=== PATIENT | male | born 1990 | race Caucasian/White ===

== ENCOUNTER 2021-06-15 22:02 | Emergency (ER) | payer SELFPAY ==
[2021-06-15 22:04] VITALS: BP 110/81; PULSE 77; RESP 16; TEMP 36.6; O2SAT 97; BMI 29.1
--- NOTE | 2021-06-15 22:27 | XR_ITS ---
PROCEDURE INFORMATION: Exam: XR Left Knee Exam date and time: 06/15/2021 10:27 PM Age: 30 years old Clinical indication: Patient HX: Injury 1 week ago, C/O lateral left knee pain TECHNIQUE: Imaging protocol: XR Left knee. Views: 3 views. COMPARISON: No relevant prior studies available. FINDINGS: Bones/joints: Normal. Soft tissues: Moderate size suprapatellar joint effusion. IMPRESSION: Moderate size suprapatellar joint effusion. No underlying acute fracture or dislocation.
--- NOTE | 2021-06-16 00:05 | [facility].EDGENADL ---
ED Disposition Clinical Impression: Knee effusion, left Knee internal derangement Qualifiers: Laterality: left Qualified Code(s): M23.92 - Unspecified internal derangement of left knee Disposition: Home, Self-Care Condition on Discharge: Good Instructions: DI for Knee Effusion Additional Instructions: see ortho and pcp for follow up Prescriptions: predniSONE [Prednisone 20mg Tab] 20 mg PO BID #10 tab Prescription Printed Referrals: Provider,MD Nigel [Primary Care Provider] - Nitesh Ferguson MD [Staff Physician] - Alex Montez JR, MD [Physician] - - Critical Care Critical Care Time: No Attestation: On 06/15/21, the high probability of a clinically significant, sudden or life threatening deterioration of the following system(s) required my full and direct attention, intervention and personal management. The time I documented below is in addition to time spent performing reported procedures but includes the following listed in this critical care notation. Medical Decision Making - Medical Records Medical records reviewed: Yes: I reviewed the patient's medical records. - Bladimir Inquiry Pt receiving controlled substance: No Vital Signs: 06/15/21 22:04 Temperature 97.9 F Temperature Source Oral Pulse Rate [Left] 77 Respiratory Rate 16 Blood Pressure [Right Arm] 110/81 Blood Pressure Mean [Right Arm] 90 02 Sat by Pulse Oximetry 97 Oxygen Delivery Method Room Air Orders (Tests/Meds): ED MEDICATIONS Discontinued Medications Generic Name Dose Route Start Last Admin Trade Name Freq PRN Reason Stop Dose Admin Ibuprofen 800 mg 06/15/21 23:54 06/15/21 23:56 Ibuprofen 400 Mg Tablet PO 06/15/21 23:55 800 mg ONCE ONE Administration Prednisone 40 mg 06/16/21 00:04 Prednisone 20mg Tab PO 06/16/21 00:05 ONCE ONE - Radiology Data #1 Image(s): Knee Image Reviewed: Yes I have reviewed radiologist's interpretation Preliminary Findings: Abnormal Medical Decision Narrative: has prob internal injury as has effusion - and mech of injury maite need ortho and mri General Adult HPI - General Chief complaint: PAIN Stated complaint: left knee swollen Time Seen by Provider: 06/16/21 00:05 Mode of Arrival: Ambulatory Source of Information: Patient, Medical Record Limitations: No Limitations Description of Symptoms (Recalled from ER Triage Doc. by RN): pt twisted his left knee 1 week ago has swelling and pain - History of Present Illness HPI narrative: acute rotation injury to lt knee with swelling and pain with dec rom - Onset (ago): day(s) Location: lower extremity Severity: moderate Associated symptoms: denies other symptoms Treatments prior to arrival: NSAID - Related Data Previous Rx's Medication Instructions Recorded predniSONE [Prednisone 20mg 20 mg PO BID #10 tab 06/16/21 Tab] Allergies Allergy/AdvReac Type Severity Reaction Status Date / Time morphine AdvReac Verified 06/15/21 22:26 [facility] History - Hepatitis A Screen Drug use history?: No High risk sexual behaviors?: No History of sexually transmitted infection?: No Currently employed?: No Childcare worker?: No Do you have indoor plumbing?: Yes Do you have electricity?: Yes Attestation statement:: This patient has been screened for Hepatitis A risk factors. I have reviewed the patient's past medical history: Yes ROS Obtained: Yes All systems reviewed & no additional complaints - Constitutional Constitutional: Denies fever(s) - Eyes Eyes: Denies change in vision - ENT Ears, Nose, Mouth, and Throat: Denies sore throat - Cardiovascular Cardiovascular: Denies chest pain - Respiratory Respiratory: Denies cough - Gastrointestinal Gastrointestingal: Denies: abdominal pain - Genitourinary Male Genitourinary: Denies hematuria - Musculoskeletal Musculoskeletal: Reports as per HPI, Reports joint pain, Reports joint swelling, Reports limi
[2021-06-16 00:21] VITALS: BP 116/93; PULSE 112; RESP 16; TEMP 36.6; O2SAT 97
== END 2021-06-16 00:26 | disposition home or self-care (01) ==
PROVIDERS: Emergency Provider Emergency Medicine
DX: M23.92 Unspecified internal derangement of left knee (principal); M25.462 Effusion, left knee
CPT/HCPCS: 73562; 99282